=== PATIENT | male | born 1940 | race Caucasian/White ===

== ENCOUNTER 2017-09-18 12:06 | Emergency (ER) | payer OTHER, MEDICARE ==
[~2017-09-18] VITALS: Ht 182.9 cm; Wt 103.6 kg
[~2017-09-18 12:06] MED LIST: ALTACE2.5 M1 PO; AMARYL4 MG PO; COUMADIN,JANTOVE5 MG PO; Coumadin Protocol PO; JANUVIA25 M1 PO; LANTUS 10100 UNITS/ SC; LANTUS100 UNIT/1 SQ; Lasix PO; MECLIZINE HCL25 M3 PO; METOPROLOL SUCC25 MG PO; METOPROLOL TART25 MG PO; NEXIUM20 M1 PO; PRILOSEC OTC20 MG PO; TRIAMTERENE-HC1 EACH PO; TRICOR145 MG PO; ZETIA10 MG PO
[2017-09-18 13:09] LABS: INTER. NORMALIZED RATIO 2.7
[2017-09-18 15:10] VITALS: BP 99/49
== END 2017-09-18 15:11 | disposition home or self-care (01) ==
LOC: EME 12:06
PROVIDERS: Physician Assistant
DX: R60.0 Localized edema (principal); I48.91 Unspecified atrial fibrillation; E11.22 Type 2 diabetes mellitus with diabetic chronic kidney disease; N18.9 Chronic kidney disease, unspecified; E78.5 Hyperlipidemia, unspecified; K21.9 Gastro-esophageal reflux disease without esophagitis; F32.9 Major depressive disorder, single episode, unspecified; H81.02 Meniere's disease, left ear; Z79.01 Long term (current) use of anticoagulants; Z79.4 Long term (current) use of insulin; Z95.2 Presence of prosthetic heart valve; Z87.891 Personal history of nicotine dependence; Z85.9 Personal history of malignant neoplasm, unspecified; Z90.49 Acquired absence of other specified parts of digestive tract; Z96.653 Presence of artificial knee joint, bilateral
CPT/HCPCS: 85610; 93971; 99281; 99283